=== PATIENT | female | born 1995 | race Caucasian/White ===

== ENCOUNTER → 2018-08-14 | Outpatient (CLI) | payer OTHER ==
[2018-08-14 13:36] LABS: BASO # 0.1 10^3/uL (0.0-0.2); BASO % 0.9 % (0.0-1.0); EOS # 0.3 10^3/uL (0.0-0.50); EOS % 3.7 % (0.0-3.0); HEMATOCRIT 40.7 % (36.0-47.0); HEMOGLOBIN 13.4 g/dl (12.0-15.5); LYMPH # 1.4 10^3/uL (1.5-6.5); MEAN CORPUSCULAR HEMOGLOBIN 28.6 pg (27.0-33.0); MEAN CORPUSCULAR HGB CONC 32.9 g/dl (32.0-36.5); MEAN CORPUSCULAR VOLUME 86.8 fl (80.0-96.0); MONO # 0.4 10^3/uL (0.0-0.8); MONO % 6.4 % (0.0-5.0); NEUTROPHILS # 4.6 10^3/uL (1.8-7.7); NEUTROPHILS % 67.7 % (36.0-66.0); PLATELET COUNT, AUTOMATED 267 10^3/uL (150-450); RED BLOOD COUNT 4.69 10^6/uL (4.00-5.40); WHITE BLOOD COUNT 6.7 10^3/uL (4.0-10.0)
[2018-08-14 14:29] LABS: FREE T4 1.08 NG/DL (0.76-1.46)
[2018-08-14 14:41] LABS: RUBELLA IgG QUALITATIVE IMMUNE (IMMUNE)
[2018-08-14 15:11] LABS: HEPATITIS C VIRUS ABY INDEX 0.1 INDEX (<0.8); HIV 1&2 SCREEN CENTAUR NEGATIVE (NEGATIVE)
[2018-08-14 15:28] LABS: CHLAMYDIA DNA AMPLIFICATION NEGATIVE (NEGATIVE); GC DNA AMPLIFICATION NEGATIVE (NEGATIVE)
== END ==
LOC: M SMT 09:05
PROVIDERS: ATTEND Advanced Practice Midwife
DX: Z36.89 Encounter for other specified antenatal screening (principal); Z3A.08 8 weeks gestation of pregnancy

== ENCOUNTER → 2018-09-12 | Outpatient (CLI) | payer OTHER ==
[2018-09-12 13:58] LABS: FREE T4 1.1 NG/DL (0.76-1.46); THYROID STIMULATING HORMONE 4.97 uIU/ML (0.358-3.740)
== END ==
LOC: M SMT 08:33
PROVIDERS: ATTEND Advanced Practice Midwife
DX: Z34.82 Encounter for supervision of other normal pregnancy, second trimester (principal); Z36.89 Encounter for other specified antenatal screening

== ENCOUNTER → 2018-10-11 | Outpatient (CLI) | payer OTHER ==
[2018-10-11 18:10] LABS: FREE T4 1.02 NG/DL (0.76-1.46); THYROID STIMULATING HORMONE 2.06 uIU/ML (0.358-3.740)
== END ==
LOC: M SMT 13:45
PROVIDERS: ATTEND Advanced Practice Midwife
DX: Z36.89 Encounter for other specified antenatal screening (principal)

== ENCOUNTER → 2018-11-06 | Outpatient (CLI) | payer OTHER ==
--- NOTE | 2018-11-07 02:33 | REP ---
Clinical: Anatomical evaluation. Comparison: None . Findings: Examination demonstrates a single live intrauterine in cephalic presentation. motion is identified by technologist. Placenta is noted anterior and grade 1 without evidence for placenta previa or abruption. Anterior intramural fibroid measures 2.2 x 1.5 x 2.6 cm. Amniotic fluid volume is normal. Cervix measures 3.3 cm in length and appears closed. No evidence for nuchal cord. Gestational age by LMP 20 weeks 1 day with ASHLEY 03/25/2019 . Gestational age by current measurements 20 weeks 4 days with ASHLEY 03/22/2019 . FHR equals 153 beats per minute. BPD 4.9 cm 21 weeks 0 days HC 18.1 cm 20 weeks 4 days AC 15.2 cm 20 weeks 3 days FL 3.3 cm 20 weeks 3 days HL 3.1 cm 20 weeks 3 days HC/AC ratio 1.19 Estimated weight 357 grams (60th percentile). Anatomical assessment demonstrates normal structures including cranium, choroid plexus, cavum, cerebellum/posterior fossa, facial features, lungs, four-chamber heart/ventricular outflow tracts, diaphragm, stomach, cord insertion/three-vessel cord, kidneys/bladder, spine, and extremities. Impression: 1. Single live intrauterine in cephalic presentation demonstrating appropriate interval growth. Anatomical assessment is complete and normal. 2. 2.6 cm anterior intramural fibroid. Electronically Signed by Tristan Dominguez MD 11/07/2018 02:26 A
== END ==
LOC: M RAD 09:57
PROVIDERS: ATTEND Advanced Practice Midwife
DX: O99.512 Diseases of the respiratory system complicating pregnancy, second trimester (principal); Z3A.20 20 weeks gestation of pregnancy

== ENCOUNTER → 2018-12-11 | Outpatient (CLI) | payer OTHER ==
[2018-12-11 14:04] LABS: HEMATOCRIT 38.2 % (36.0-47.0); HEMOGLOBIN 12.5 g/dl (12.0-15.5); MEAN CORPUSCULAR HEMOGLOBIN 30.2 pg (27.0-33.0); MEAN CORPUSCULAR HGB CONC 32.7 g/dl (32.0-36.5); MEAN CORPUSCULAR VOLUME 92.3 fl (80.0-96.0); PLATELET COUNT, AUTOMATED 220 10^3/uL (150-450); RED BLOOD COUNT 4.14 10^6/uL (4.00-5.40); WHITE BLOOD COUNT 11.1 10^3/uL (4.0-10.0)
[2018-12-11 14:14] LABS: FREE T4 0.78 NG/DL (0.76-1.46); THYROID STIMULATING HORMONE 1.62 uIU/ML (0.358-3.740)
== END ==
LOC: M SMT 09:05
PROVIDERS: ATTEND Obstetrics & Gynecology
DX: O99.282 Endocrine, nutritional and metabolic diseases complicating pregnancy, second trimester (principal); Z3A.00 Weeks of gestation of pregnancy not specified

== ENCOUNTER → 2019-02-05 | Outpatient (CLI) | payer OTHER ==
[~2019-02-05] MED LIST: ARMO1TAB PO; CLAR10TA7 PO; PRENTAB9 PO
[2019-02-05 13:21] LABS: HEMATOCRIT 35.4 % (36.0-47.0); HEMOGLOBIN 11.5 g/dl (12.0-15.5); MEAN CORPUSCULAR HEMOGLOBIN 28.7 pg (27.0-33.0); MEAN CORPUSCULAR HGB CONC 32.5 g/dl (32.0-36.5); MEAN CORPUSCULAR VOLUME 88.3 fl (80.0-96.0); PLATELET COUNT, AUTOMATED 230 10^3/uL (150-450); RED BLOOD COUNT 4.01 10^6/uL (4.00-5.40); WHITE BLOOD COUNT 10.6 10^3/uL (4.0-10.0)
[2019-02-05 13:45] LABS: CREATININE,RANDOM URINE 99.3 MG/DL; TOTAL PROTEIN,RANDOM URINE 30.5 MG/DL (0.0-12.0)
[2019-02-05 13:46] LABS: ALT/SGPT 20 U/L (12-78); BILIRUBIN,TOTAL 0.1 MG/DL (0.2-1.0); GLOMERULAR FILTRATION RATE > 60.0 (>60); LDH LACTATE DEHYDROGENASE 170 U/L (84-246); URIC ACID 5.1 MG/DL (2.6-6.0)
== END ==
LOC: M SMT 11:22
PROVIDERS: ATTEND Advanced Practice Midwife
DX: O16.3 Unspecified maternal hypertension, third trimester (principal)

== ENCOUNTER 2019-02-07 13:07 | Outpatient (CLI) | payer OTHER ==
[~2019-02-07] VITALS: Ht 162.6 cm; Wt 84.0 kg
[2019-02-07 13:27] VITALS: BP 127/64
[2019-02-07] MEDS ORDERED: CLAR10TA7 PO (13:30)
[2019-02-07] MEDS ORDERED: PRENTAB9 PO (13:30)
[2019-02-07] MEDS ORDERED: ARMO1TAB PO (13:30)
[2019-02-07 14:31] VITALS: BP 124/79
[2019-02-07 15:34] VITALS: BP 132/85
--- NOTE | 2019-02-07 15:45 | REP ---
Clinical: Preeclampsia Comparison: 11/06/2018. Findings: Examination demonstrates a single live intrauterine in cephalic presentation. motion is identified by technologist. Placenta is noted anterior and grade III without evidence for placenta previa or abruption. Amniotic fluid volume is normal. Cervix measures 3.1 cm in length and appears closed. No evidence for nuchal cord. Gestational age by LMP 33 weeks 3 days with ASHLEY 03/25/2019 . Gestational age by current measurements 33 weeks 6 days with ASHLEY 03/22/2019 . FHR equals 128 beats per minute. Biophysical profile score: 6/8 (breathing-0, tone-2, movement-2, AFV-2) Amniotic fluid index: 19.6 cm (8.2 - 24.6) Umbilical cord SD ratio: 3.59 Impression: Single live advanced gestation in cephalic presentation. Biophysical profile score equals 6/8 Electronically Signed by Tristan Dominguez MD 02/07/2019 03:37 P
[2019-02-07 17:00] VITALS: BP 138/84
--- NOTE | 2019-02-07 17:27 | IPNPDOC ---
Text Note Date of Service The patient was seen on 02/07/19. NOTE Outpatient 23yo G [id number] ASHLEY 03/20/19. Presents @ 34w1d from the office. Pt dx with preeclampsia today. Preelcmptic panel WNL earlier this week except urine ratio 0.31. Denies DAY, visual disturbances or chest pain VSS, normotensive Cat I tracing, no UC BPP 6/8, off for breathing. Dr Tidwell aware. Discharge home, s/s preeclampsia and PTL reviewed. Keep appt Sunday for BP and later in the week for visit with Esme Howe, I+O Esme GARZA I+O Vital Signs Date Time Temp Pulse Resp B/P (MAP) Pulse Ox O2 Delivery O2 Flow Rate FiO2 02/07/19 13:27 97.9 83 16 127/64 (85) Jenny Okeefe CNM Feb 07, 2019 14:48
== END 2019-02-07 17:40 | disposition home or self-care (01) ==
LOC: M LDO 13:07
PROVIDERS: ATTEND Advanced Practice Midwife
DX: O14.93 Unspecified pre-eclampsia, third trimester (principal); Z3A.34 34 weeks gestation of pregnancy
CPT/HCPCS: 59025; 76819; G0378; G0463

== ENCOUNTER 2019-02-10 10:54 | Outpatient (CLI) | payer OTHER ==
[~2019-02-10] VITALS: Ht 162.6 cm; Wt 85.2 kg
[2019-02-10 11:15] VITALS: BP 135/91
[2019-02-10 11:30] VITALS: BP 128/86
[2019-02-10 11:45] VITALS: BP 130/86
[2019-02-10] MEDS ORDERED: BETAMETHASONE SOLUSPAN 6MG/ML INJ 5ML (J0702) IM SCH (12:00)
[2019-02-10 12:01] VITALS: BP 129/83
[2019-02-10 12:15] VITALS: BP 131/80
--- NOTE | 2019-02-10 15:10 | IPNPDOC ---
Text Note Date of Service The patient was seen on 02/10/19. NOTE Subjective: Patient is a 23-year-old female who is a at 34.4 weeks gestation with an ASHLEY of 03/20/19 based off of LMP and consistent with her first trimester ultrasound. She presents to L&D for betamethasone injections due to another elevated BP in the office again today. She currently denies any preeclamptic signs or symptoms. She reports active movement. She denies leaking of fluid, vaginal bleeding, or contractions. Objective: VS: see below. FHR is 130, moderate variability, positive accelerati ons, no decelerations. Contractions every 2-8 minutes. Assessment: IUP at 34.4 weeks gestation, preeclampsia Plan: Patient given dose of betamethasone. She was given instructions to return to L&D tomorrow for repeat dose in 24 hours. Patient instructed to call with preeclamptic s/sx, decreased movement, vaginal bleeding, severe abdominal pain, leaking of fluid, or contractions. Patient and verbalized understanding. VS,T[place]bone, I+O VS, Fishbone, I+O Vital Signs Date Time Temp Pulse Resp B/P (MAP) Pulse Ox O2 Delivery O2 Flow Rate FiO2 02/10/19 12:15 71 18 131/80 (97) 02/10/19 11:15 99.3 MARLENI BRIGGS CNM Feb 10, 2019 15:10
== END 2019-02-10 12:38 | disposition home or self-care (01) ==
LOC: M LDO 10:54
PROVIDERS: ATTEND Advanced Practice Midwife
DX: O14.93 Unspecified pre-eclampsia, third trimester (principal); Z3A.34 34 weeks gestation of pregnancy
CPT/HCPCS: 59025; 96372; G0378; G0463; J0702

== ENCOUNTER 2019-02-11 12:04 | Outpatient (CLI) | payer OTHER ==
[~2019-02-11] VITALS: Ht 162.6 cm; Wt 85.6 kg
[2019-02-11 12:16] VITALS: BP 138/84
[2019-02-11] MEDS ORDERED: BETAMETHASONE SOLUSPAN 6MG/ML INJ 5ML (J0702) IM ONE (12:30)
== END 2019-02-11 15:40 | disposition home or self-care (01) ==
LOC: M LDO 12:04
PROVIDERS: ATTEND Specialist
DX: O26.893 Other specified pregnancy related conditions, third trimester (principal); Z3A.34 34 weeks gestation of pregnancy
CPT/HCPCS: 59025; 96372; G0378; G0463; J0702

== ENCOUNTER → 2019-02-14 | Outpatient (CLI) | payer OTHER ==
[~2019-02-14] MED LIST changes: +ACET-683 PO; +IBUP80TA PO; +LABE10TAB PO; +MAPA500T2 PO; +OMEP40CA97 PO; +SYNT150T PO; +ZYRTTAB8 PO
--- NOTE | 2019-02-14 09:07 | REP ---
Clinical: Growth evaluation. Comparison: 02/07/2019 . Findings: Examination demonstrates a single live intrauterine in cephalic presentation. motion is identified by technologist. Placenta is noted anterior and grade three without evidence for placenta previa or abruption. Amniotic fluid volume is normal. Cervix appears closed. No evidence for nuchal cord. Gestational age by LMP 34 weeks 3 days with ASHLEY 03/25/2019 . Gestational age by current measurements 33 weeks 5 days with ASHLEY 03/30/2019 . FHR equals 134 beats per minute. BPD 8.5 cm 34 weeks 3 days HC 30.6 cm 34 weeks 1 day AC 28.2 cm 32 weeks 1 day FL 6.6 cm 34 weeks 0 days HL 5.8 cm 33 weeks 5 days HC/AC ratio 1.09 Estimated weight 2128 grams ( 24th percentile). Biophysical profile score: 8/8 Amniotic fluid index: 12.4 cm Umbilical cord SD ratio: 3.65 (2.00 - 3.00). Middle cerebral artery SD ratio: 3.35 Impression: 1. Single live advanced gestation in cephalic presentation. Estimated weight is within normal range. 2. Slight elevation to the umbilical cord SD ratio and MCA:UA < 1 noted. Electronically Signed by Tristan Dominguez MD 02/14/2019 08:58 A
== END ==
LOC: M RAD 07:43
PROVIDERS: ATTEND Advanced Practice Midwife
DX: O14.03 Mild to moderate pre-eclampsia, third trimester (principal); Z3A.33 33 weeks gestation of pregnancy

== ENCOUNTER 2019-02-18 10:33 | Inpatient (IN) | payer OTHER ==
[2019-02-18] VITALS (60 sets, daily range): BP systolic 130–194; BP diastolic 64–120
[~2019-02-18] VITALS: Ht 160 cm; Wt 88.8 kg
[~2019-02-18 10:33] MED LIST changes: -ACET-683 PO; -IBUP80TA PO; -LABE10TAB PO; -MAPA500T2 PO; -OMEP40CA97 PO; -SYNT150T PO; -ZYRTTAB8 PO
[2019-02-18] MEDS ORDERED: MAPA500T2 PO (10:51)
[2019-02-18] MEDS ORDERED: LABETALOL HCL 100 MG/20 ML VIAL IV STA ×3 (11:39→18:07)
--- NOTE | 2019-02-18 12:01 | HPE ---
DATE OF ADMISSION: 02/18/2019 23-year-old, 2, para 0-0-1-0 female at 35 and 5/7 weeks gestation by last menstrual period and consistent with 8 week ultrasound. Estimated date of confinement (EDC) of 03/20/2019. She presents to the office after experiencing severe headache starting at 4:00 a.m. on the day of admission. Pain was 10/10 in intensity. She took Tylenol with no relief. She noticed some swelling in her hands and legs. The patient was diagnosed with preeclampsia at approximately 34 weeks gestation and has been followed closely since then. She completed steroids on 02/11/2019. She reports good movement. Her blood pressure when she reached the office was 170/110 and it persisted to be elevated upon repeat blood pressure checks. COURSE: The patient initiated care at 8 weeks gestation on 08/14/2018. Her first trimester blood pressure was 114/64. She started developing elevated blood pressures between 33 and 34 weeks gestation. She was subsequently diagnosed with preeclampsia at 34 weeks gestation. She was monitored with testing and frequent visits ever since. She received steroids, as mentioned above, for lung maturity. MEDICAL HISTORY: 1. Hypothyroidism. 2. Asthma. SURGICAL HISTORY: 1. Appendectomy in 2010. 2. Tonsillectomy in 2016. 3. Adenoidectomy in 1999. MEDICATIONS: - Curtiss thyroid 30 mg - Flonase - vitamins ALLERGIES: No known drug allergies. SOCIAL HISTORY: The patient lives in [place], [place]. She is . She denies cigarettes, alcohol or drug use. FAMILY HISTORY: Noncontributory. PHYSICAL EXAMINATION: 183/112, pulse 68, temperature 97. GENERAL: She appears to have edema in her face and hands. Head and neck exam otherwise normal. LUNGS: Clear. HEART: Regular rate and rhythm. ABDOMEN: Nontender, gravid. heart tones are category 1. Contractions irregular. Sterile vaginal exam: Fingertip, 50%, -2, posterior, soft, vertex. EXTREMITIES: Nontender. 1+ edema. LABORATORIES: Blood type is B positive. Rubella immune. Diabetes screen 127. ASSESSMENT: 23-year-old 2, para 0 female at 35 and 5/7 weeks gestation with the diagnosis of preeclampsia. She presented with evidence of worsening disease including severe features. PLAN: Admit the patient to initiate labor induction. Repeat preeclampsia profile. Treat blood pressure as needed. Consider magnesium sulfate prophylaxis during the induction process. The patient was admitted on 02/18/2019.
[2019-02-18] MEDS: miSOPROStol 50 MCG 1/2 TAB (S0191) PO SCH ×3 (12:08→20:51)
[2019-02-18] MEDS ORDERED: hydrALAZINE INJ 20 MG/ML VIAL IV STA (13:02)
[2019-02-18 13:08] LABS: HEMATOCRIT 32.5 % (36.0-47.0); HEMOGLOBIN 10.8 g/dl (12.0-15.5); MEAN CORPUSCULAR HEMOGLOBIN 29.3 pg (27.0-33.0); MEAN CORPUSCULAR HGB CONC 33.2 g/dl (32.0-36.5); MEAN CORPUSCULAR VOLUME 88.3 fl (80.0-96.0); PLATELET COUNT, AUTOMATED 192 10^3/uL (150-450); RED BLOOD COUNT 3.68 10^6/uL (4.00-5.40)
[2019-02-18] MEDS ORDERED: hydrALAZINE INJ 20 MG/ML VIAL IV ONE ×2 (13:45→18:45)
[2019-02-18 14:10] LABS: ALT/SGPT 21 U/L (12-78); BILIRUBIN,TOTAL 0.1 MG/DL (0.2-1.0); CREATININE FOR GFR 0.75 MG/DL (0.55-1.30); GLOMERULAR FILTRATION RATE > 60.0 (>60); LDH LACTATE DEHYDROGENASE 327 U/L (84-246); URIC ACID 6.1 MG/DL (2.6-6.0)
[2019-02-18] MEDS ORDERED: MAG Sulf (L&D) 4 GM/100 ML 4 GM in APPROPRIATE DILUENT 1 EA IV ONE (16:15)
[2019-02-18] MEDS ORDERED: MAG Sulf (OBGYN) 20GM/500ML 20,000 MG in APPROPRIATE DILUENT 1 EA IV SCH ×2 (16:15→20:18)
[2019-02-18] MEDS ORDERED: ACETAMINOPHEN 500 MG TAB PO PRN (16:15)
[2019-02-18] MEDS ORDERED: MAGNESIUM SULFATE 4% INJ 20GM/500ML (40MG/ML) (J3475) As Ordered ONE (16:23)
[2019-02-18] MEDS ORDERED: ACETAMINOPHEN 500 MG TAB As Ordered ONE (16:24)
[2019-02-18] MEDS: LR 1,000 ML IV SCH (16:48)
[2019-02-18] MEDS ORDERED: PENICILLIN G POTASSIUM IV 5 MU in D5W MINI-BAG PLUS 100 ML IV STA (20:00)
[2019-02-18] MEDS ORDERED: FENTANYL 2MCG/ML ROPIVACAINE 0.2% IN 0.9% NACL 100ML IVBAG As Ordered ONE (21:01)
[2019-02-19] VITALS (57 sets, daily range): BP systolic 132–189; BP diastolic 67–107
[2019-02-19] MEDS ORDERED: PENICILLIN G POTASSIUM IV 2.5 MU in APPROPRIATE DILUENT 1 EA IV SCH (00:30)
[2019-02-19] MEDS ORDERED: hydrALAZINE INJ 20 MG/ML VIAL IV ONE (01:45)
[2019-02-19] MEDS ORDERED: OXYTOCIN 30 UNITS IN 0.9% NaCl 500ML IV BAG (J2590) As Ordered ONE (03:43)
[2019-02-19 04:06] LABS: CORD GAS ABE V -4.7; CORD GAS HCO3 V 22.4 MEQ/L; CORD GAS O2 SAT V 51.5 %; CORD GAS PH V 7.287 UNITS; CORD GAS PO2 V 23.6 mmHg; CORD GAS SBC V 19.4 MEQ/L; CORD GAS TCO2 V 23.9 MEQ/L
[2019-02-19 04:07] LABS: CORD GAS ABE A -7.9; CORD GAS HCO3 A 20.3 MEQ/L; CORD GAS O2 SAT A 39.1 %; CORD GAS PCO2 A 51.1 mmHg; CORD GAS PH A 7.218 UNITS; CORD GAS PO2 A 19.9 mmHg; CORD GAS SBC A 16.8 MEQ/L; CORD GAS TCO2 A 21.9 MEQ/L
[2019-02-19] MEDS ORDERED: LIDOCAINE 1% MDV 20ML VIAL INFIL ONE (04:15)
[2019-02-19] MEDS ORDERED: OXYTOCIN DRIP 30 UNITS in APPROPRIATE DILUENT 1 EA IV ONE (04:15)
[2019-02-19] MEDS ORDERED: DIBUCAINE 1% OINTMENT 30GM TOP PRN (04:15)
[2019-02-19] MEDS ORDERED: MEASLES,MUMPS,RUBELLA VACCINE INJ (MMR-II) (90707) SC SCH (04:15)
[2019-02-19] MEDS ORDERED: IBUPROFEN 800 MG TAB PO PRN (04:15)
[2019-02-19] MEDS ORDERED: METHYLERGONOVINE MALEATE 0.2 MG TAB PO PRN (04:15)
[2019-02-19] MEDS ORDERED: IBUPROFEN 600 MG TAB PO PRN (04:15)
[2019-02-19] MEDS ORDERED: ONDANSETRON 4MG/2ML VIAL (J2405) IV PRN (04:15)
[2019-02-19] MEDS ORDERED: ACETAMINOPHEN 500 MG TAB PO PRN (04:15)
[2019-02-19] MEDS ORDERED: RHOGAM 300 MCG (1500 IU) INJ (J2790) IM SCH (04:15)
[2019-02-19] MEDS ORDERED: DOCUSATE SODIUM 100 MG CAP PO PRN (04:15)
[2019-02-19] MEDS: PRENATAL VITAMINS CHEWABLE TABLET PO SCH (09:01)
[2019-02-19] MEDS: LABETALOL 100 MG TAB PO SCH ×2 (09:03→20:42)
[2019-02-19] MEDS: ACETAMINOPHEN TAB 650MG DOSE (2X325MG) PO PRN (10:47)
[2019-02-19] MEDS ORDERED: SLF 3 ML SYR IV PRN (15:00)
[2019-02-19] MEDS ORDERED: SLF 3 ML SYR IV SCH (16:00)
[2019-02-19] MEDS: LR 1,000 ML IV SCH (17:01)
[2019-02-20] VITALS (12 sets, daily range): BP systolic 134–176; BP diastolic 76–104
[2019-02-20] MEDS: PRENATAL VITAMINS CHEWABLE TABLET PO SCH (08:28)
[2019-02-20] MEDS: LABETALOL 100 MG TAB PO SCH ×3 (08:29→20:30)
--- NOTE | 2019-02-20 17:17 | DN ---
DATE: 02/19/2019 PREDELIVERY DIAGNOSIS: 35-5/7 weeks gestation, preeclampsia, severe features, induction. POSTDELIVERY DIAGNOSIS: Delivered. PROCEDURE: Low forceps assisted vaginal delivery. VOCATIONAL REHAB CONSULTANT: Efrain Pimentel MD ANESTHESIA: Epidural. ESTIMATED BLOOD LOSS: 300 mL. FINDINGS: 4 pound 10 ounce male , scores 8 and 9. Arterial blood gas 7.21, base excess -7.9, venous blood gas 7.28, base excess -4.7. DELIVERY SUMMARY: After a short second stage, the patient was noted to have persistent bradycardia to the 70s and 80s with accompanying loss of variability. This did not come in spite of standard maneuvers of maternal oxygen, position changes, and IV fluids. After allowing for maternal effort to see if delivery could be accomplished spontaneously, it was determined that that was not going to happen in a timely fashion. Decision was made to assist with forceps. [id number] forceps were applied to the left occiput transverse (LOT) fetus without difficulty. Rotation occurred to the anterior occiput position. Delivery was accomplished with controlled traction along with maternal effort. There was no nuchal cord. The shoulders delivered with ease. The was handed to the mother. The cord was doubly clamped and cut. Placenta delivered spontaneously, appeared to be intact. The patient received intravenous (IV) Pitocin immediately after delivery of the placenta. A small second-degree perineal laceration was repaired with #2-0 chromic under local anesthesia in the usual fashion. Sponge and needle counts were correct.
[2019-02-21] VITALS (7 sets, daily range): BP systolic 129–162; BP diastolic 64–96
[2019-02-21] MEDS: PRENATAL VITAMINS CHEWABLE TABLET PO SCH (08:38)
[2019-02-21] MEDS: LABETALOL 100 MG TAB PO SCH ×3 (08:39→20:09)
[2019-02-21] MEDS: ACETAMINOPHEN TAB 650MG DOSE (2X325MG) PO PRN (20:10)
[2019-02-22] VITALS (7 sets, daily range): BP systolic 143–159; BP diastolic 76–98
--- NOTE | 2019-02-22 07:08 | IPNPDOC ---
Text Note Date of Service The patient was seen on 02/22/19. NOTE PP #2 Feels well. Denies headache or visual disturbances. Voiding. Pumping Blood pressures are trending 150'160's/90's Breasts soft, nipples intact Fundus firm NT down 2 Lochia rubra light without odor Perineum well approximated Dr Pimentel informed of pt status and trending pressures He will monitor today VS,Fishbone, I+O VS, Fishbone, I+O Vital Signs Date Time Temp Pulse Resp B/P (MAP) Pulse Ox O2 Delivery O2 Flow Rate FiO2 02/22/19 05:34 97.5 86 18 158/98 (118 97 Jenny Okeefe CNM Feb 22, 2019 07:08
[2019-02-22] MEDS: PRENATAL VITAMINS CHEWABLE TABLET PO SCH (08:41)
[2019-02-22] MEDS: LABETALOL 100 MG TAB PO SCH ×3 (08:42→21:46)
[2019-02-23 02:00] VITALS: BP 160/88
[2019-02-23 05:57] VITALS: BP 144/72
[2019-02-23 07:09] VITALS: BP 112/62
[2019-02-23] MEDS ORDERED: OMEP40CA2 PO (07:22)
[2019-02-23] MEDS ORDERED: SYNT150T PO (07:22)
[2019-02-23] MEDS ORDERED: ZYRTTAB8 PO ×2 (07:22→07:24)
[2019-02-23] MEDS: PRENATAL VITAMINS CHEWABLE TABLET PO SCH (09:03)
[2019-02-23 09:06] VITALS: BP 149/85
[2019-02-23] MEDS: LABETALOL 100 MG TAB PO SCH (09:06)
[2019-02-23] MEDS ORDERED: IBUP80TA PO (10:32)
[2019-02-23] MEDS ORDERED: LABE10TAB PO (10:32)
[2019-02-23] MEDS ORDERED: ACET-683 PO (10:32)
== END 2019-02-23 13:56 | disposition home or self-care (01) | DRG 807 ==
LOC: M LDI 10:33 → M OBS 02-20 09:25
PROVIDERS: ADMIT Specialist; ATTEND Specialist
PROC: 10D07Z3 Extraction of Products of Conception, Low Forceps, Via Natural or Artificial Opening (ICD-10-PCS; principal; 2019-02-19)
PROC: 0KQM0ZZ Repair Perineum Muscle, Open Approach (ICD-10-PCS; 2019-02-19)
PROC: 3E0P7GC Introduction of Other Therapeutic Substance into Female Reproductive, Via Natural or Artificial Opening (ICD-10-PCS; 2019-02-19)
DX: O14.14 Severe pre-eclampsia complicating childbirth (principal); Z37.0 Single live birth; Z3A.35 35 weeks gestation of pregnancy; O99.283 Endocrine, nutritional and metabolic diseases complicating pregnancy, third trimester; E03.9 Hypothyroidism, unspecified; O76 Abnormality in fetal heart rate and rhythm complicating labor and delivery; O70.1 Second degree perineal laceration during delivery